=== PATIENT | female | born 1965 | race Caucasian/White ===

== ENCOUNTER 2017-03-20 07:53 | Emergency (ER) | payer OTHER ==
[2017-03-20 08:07] VITALS: BP 131/67; PULSE 79; RESP 20; TEMP 97; O2SAT 99
--- NOTE | 2017-03-20 08:28 | ED PDOC ---
HPI: Female Pain Time Seen by Provider: 03/20/17 08:23 Chief Complaint (Nursing): Female Genitourinary History Per: Patient (Crampy lower abd pain assoc with vaginal bleeding, small amount x 2 days. LMP 2 years ago.) Onset/Duration Of Symptoms: Days (2) Current Symptoms Are (Timing): Still Present Severity: Mild Pain Scale Rating Of: 2 Quality Of Discomfort: Cramping Abnormal Vaginal Bleeding: Yes Past Medical History Vital Signs: Last Vital Signs Temp 97 F L 03/20/17 08:05 Pulse 79 03/20/17 08:05 Resp 20 03/20/17 08:05 BP 131/67 03/20/17 08:05 Pulse Ox 99 03/20/17 08:05 - Medical History PMH: No Chronic Diseases - Family History Family History: States: Unknown Family Hx - Home Medications Home Medications: Ambulatory Orders Medication Instructions Recorded Naproxen [Naprosyn] 500 mg PO Q12H #20 tab 03/20/17 - Allergies Allergies/Adverse Reactions: Allergies Allergy/AdvReac Type Severity Reaction Status Date / Time No Known Allergies Allergy Verified 03/20/17 08:04 Review of Systems Constitutional: Negative for: Fever Gastrointestinal: Positive for: Abdominal Pain Genitourinary Female: Positive for: Vaginal Bleeding Musculoskeletal: Negative for: Back Pain Physical Exam - Physical Exam Appears: Positive for: Non-toxic, No Acute Distress Skin: Positive for: Normal Color, Warm, DRY Gastrointestinal/Abdominal: Positive for: Bowel Sounds, Soft. Negative for: Tenderness, Mass Pelvic Exam: Positive for: External Exam Normal, Blood (Small amount blood in vault). Negative for: Mass, Tender Adnexa, Tender Uterus - Laboratory Results Result Diagrams: 03/20/17 08:38 03/20/17 08:38 - ECG O2 Sat by Pulse Oximetry: 99 Disposition - Clinical Impression Clinical Impression: Post-menopausal bleeding, Fibroid - Patient ED Disposition Is Patient to be Admitted: No - Disposition [facility] Disposition: Routine/Home Disposition Time: 10:25 Condition: FAIR Prescriptions: Naproxen [Naprosyn] 500 mg PO Q12H #20 tab Instructions: Uterine Fibroids (ED)
[2017-03-20 08:48] LABS: BASO # 0.1 K/uL (0.0-0.2); BASO % 1.1 % (0.0-2.0); EOS # 0.1 K/uL (0.0-0.7); EOS % 2.5 % (0.0-4.0); HEMATOCRIT 40.5 % (34.0-47.0); LYMPH # 1.2 K/uL (1.0-4.3); LYMPH % 20.9 % (20.0-40.0); MEAN CELL VOLUME 93.8 fl (81.0-99.0); MEAN PLATELET VOLUME 9.7 fl (7.2-11.7); MONO # 0.4 K/uL (0.0-0.8); MONO % 6.9 % (0.0-10.0); NEUT # 3.9 K/uL (1.8-7.0); NEUT % 68.6 % (50.0-75.0); NRBC % 0.1 % (0.0-0.0); RED CELL DISTRIBUTION WIDTH 13.6 % (11.5-14.5); WHITE BLOOD COUNT 5.6 K/uL (4.8-10.8)
[2017-03-20 08:56] LABS: ALB/GLOB RATIO 1.4 (1.0-2.1); ALKALINE PHOSPHATASE 89 U/L (38-126); ALT/SGPT 49 U/L (9-52); AST/SGOT 31 U/L (14-36); BILIRUBIN,TOTAL 0.7 mg/dl (0.2-1.3); BLOOD UREA NITROGEN 11 mg/dl (7-17); CALCIUM 9.1 mg/dL (8.4-10.2); CARBON DIOXIDE 25 mmol/L (22-30); CHLORIDE 105 mmol/L (98-107); GFR AFRICAN-AMERICAN > 60; GLUCOSE,RANDOM 102 mg/dL (65-105); POTASSIUM 3.6 MMOL/L (3.6-5.0); SODIUM 141 mmol/l (132-148); TOTAL PROTEIN 7.9 G/DL (6.3-8.2)
--- NOTE | 2017-03-20 16:49 | US ---
HISTORY: Postmenopausal bleeding. COMPARISON: None available. TECHNIQUE: Transvaginal pelvic ultrasound was performed. FINDINGS: UTERUS: Measures 8.6 x 6.0 x 4.2 cm. The uterus is anteverted and normal in size. There is inhomogeneous myometrial echotexture. There is a 8 mm submucosal hypoechoic lesion in the posterior wall of the uterus. ENDOMETRIUM: The central endometrial echo complex is thickened and measures 8.6 mm. There is 4 x 6 x 3 mm cystic area in the superior endometrium. CERVIX: No cervical abnormality identified. RIGHT OVARY: Measures 2.0 x 3.2 x 1.4 cm. No solid mass. Normal flow. There is a 5 x 7 x 4 mm simple cyst. LEFT OVARY: Measures 2.2 x 2.4 x 1.0 cm. No solid mass. Normal flow. FREE FLUID: No significant free fluid noted. OTHER FINDINGS: None. IMPRESSION: 1. 8 mm submucosal lesion in the posterior wall of the uterus likely represents a submucosal fibroid however endometrial lesion is also a differential consideration. 2. Thickened central endometrial echo complex with cystic change superiorly. Given history of postmenopausal bleeding, correlation with endometrial biopsy may be performed if clinically indicated to exclude malignancy. Clinical follow-up is advised.
== END 2017-03-20 11:19 | disposition home or self-care (01) ==
LOC: H.ER 07:53
DX: N95.0 Postmenopausal bleeding (principal); D25.9 Leiomyoma of uterus, unspecified

== ENCOUNTER 2017-03-28 12:02 | Emergency (ER) | payer OTHER | END 2017-03-28 15:30 | disposition home or self-care (01) | LOC: H.ER 12:02 | DX: R10.2 Pelvic and perineal pain (principal); D25.9 Leiomyoma of uterus, unspecified ==

== ENCOUNTER 2017-03-29 23:34 | Observation (INO) | payer OTHER ==
[2017-03-30] MEDS ORDERED: Sodium Chloride 0.9% 1,000 ML IV STA (00:01)
--- NOTE | 2017-03-30 00:15 | ED PDOC ---
HPI: Abdomen Chief Complaint (Provider): vomiting blood History Per: Patient History/Exam Limitations: no limitations Onset/Duration Of Symptoms: Days Outside of [place] travel?: No Current Symptoms Are (Timing): Constant Associated Symptoms: Back Pain, Urinary Symptoms. denies: Fever, Nausea, Chest Pain Exacerbating Factors: None Alleviating Factors: None Last Bowel Movement: Today Additional History Per: Patient, Family <Carroll Álvarez - Last Filed: 03/30/17 01:21> <Joanna Cummings - Last Filed: 03/30/17 05:29> Time Seen by Provider: 03/29/17 23:40 Chief Complaint (Nursing): GI Problem Additional Complaint(s): 51 yo female without PMH presents to the ED c/o one bloody vomiting, dark, small amount, associated with abdominal discomfort, chills also reports dark stools today and frequency with discomfort during urination x1wk .Denies fever, diarrhea, constipation, headache. Has history of L hip pain for which she is taking Motrin (q6h), also taking pantoprazole. She went yesterday in the ER for abdominal discomfort. Denies any other symptoms. PCP: Dr Mccray (Carroll Álvarez) Past Medical History Reviewed: Nursing Documentation, Vital Signs - Surgical History Surgical History: No Surg Hx - Family History Family History: States: Unknown Family Hx - Living Arrangements Living Arrangements: With Family - Social History Current smoker - smoking cessation education provided: No Ex-Smoker (has not smoked in the last 12 months): No <Carroll Álvarez - Last Filed: 03/30/17 01:21> <Joanna Cummings - Last Filed: 03/30/17 05:29> Vital Signs: Last Vital Signs Temp 98.3 F 03/30/17 02:35 Pulse 80 03/30/17 03:26 Resp 20 03/30/17 03:26 BP 133/73 03/30/17 02:35 Pulse Ox 100 03/30/17 02:35 - Home Medications Home Medications: Ambulatory Orders Medication Instructions Recorded Dicyclomine [Bentyl] 20 mg PO TID 03/30/17 Ibuprofen [Motrin Tab] 03/30/17 Pantoprazole Sodium [Pantoprazole 40 mg PO DAILY 03/30/17 Sodium] - Allergies Allergies/Adverse Reactions: Allergies Allergy/AdvReac Type Severity Reaction Status Date / Time No Known Allergies Allergy Verified 03/20/17 08:04 Review of Systems ROS Statement: Except As Marked, All Systems Reviewed And Found Negative Constitutional: Positive for: Chills, Weakness. Negative for: Fever Eyes: Negative for: Pain, Vision Change ENT: Negative for: Ear Pain, Mouth Pain Cardiovascular: Negative for: Chest Pain, Palpitations, Edema Respiratory: Negative for: Cough, Shortness of Breath Gastrointestinal: Positive for: Nausea, Vomiting Genitourinary Female: Positive for: Dysuria. Negative for: Hematuria Neurological: Negative for: Confusion, Altered Mental Status <Carroll Álvarez - Last Filed: 03/30/17 01:21> Physical Exam - Reviewed Nursing Documentation Reviewed: Yes Vital Signs Reviewed: Yes - Physical Exam Appears: Positive for: No Acute Distress Head Exam: Positive for: NORMAL INSPECTION Skin: Positive for: Normal Color. Negative for: Diaphoresis, Pallor, Jaundice Eye Exam: Positive for: Normal appearance, EOMI, PERRL ENT: Positive for: Normal ENT Inspection Neck: Positive for: Normal Cardiovascular/Chest: Positive for: Regular Rate, Rhythm, Chest Non Tender. Negative for: Edema, Murmur Respiratory: Positive for: Normal Breath Sounds Gastrointestinal/Abdominal: Positive for: Bowel Sounds, Soft, Other (mild discomfort on RUQ on percussion). Negative for: Mass Rectal: Positive for: Rectal Tone Is: (normal), Stool Is Heme: (negative), Hemorrhoids (non bleeding) Neurologic/Psych: Positive for: Alert, three knife trimmer II-XII, Oriented <Carroll Álvarez - Last Filed: 03/30/17 01:21> - Laboratory Results Result Diagrams: 03/30/17 00:17 03/30/17 00:17 - ECG O2 Sat by Pulse Oximetry: 99 Pulse Ox Interpretation: Normal <Carroll Álvarez - Last Filed: 03/30/17 01:21> - Laboratory Results Result Diagrams: 03/30/17 00:17 03/30/17 00:17 <Joanna Cummings - Last Filed: 03/30/17 05:29> - Progress ED Course And Treament: Time:23:39 Impression: 51 yo Female with bloody vomiting, once today,dark, also dark stools today, abdominal discomfort, frequency and dysuria. NSAID therapy q6h for last 48 hrs. Plan: CBC CMP GUIAC IV Saline EKG CXR Protonix Urinalysis Urine culture Reassess. Time: 0100 Patient re-evaluated. Unchanged symptoms. Labs reviewed, unremarkable. 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 Logan, who accepts admission. (Carroll Álvarez) Disposition - Patient ED Disposition Is Patient to be Admitted: Yes Counseled Patient/Family Regarding: Studies Performed, Diagnosis - Disposition Disposition Time: : <Carroll Álvarez - Last Filed: 03/30/17 01:21> <Joanna Cummings - Last Filed: 03/30/17 05:29> - Clinical Impression Clinical Impression: GI bleed - Disposition Condition: FAIR
[2017-03-30 00:21] LABS: BASO % 0.4 % (0.0-2.0); HEMOGLOBIN 13.3 g/dL (12.0-16.0); LYMPH # 1.3 K/uL (1.0-4.3); MEAN CELL VOLUME 93.4 fl (81.0-99.0); MEAN CORPUSCULAR HEMOGLOBIN 31.4 pg (27.0-31.0); MEAN CORPUSCULAR HGB CONC 33.6 g/dL (33.0-37.0); MEAN PLATELET VOLUME 9.7 fl (7.2-11.7); MONO # 0.3 K/uL (0.0-0.8); MONO % 6.6 % (0.0-10.0); RBC 4.24 Mil/uL (3.80-5.20); RED CELL DISTRIBUTION WIDTH 13.4 % (11.5-14.5); WHITE BLOOD COUNT 4.7 K/uL (4.8-10.8)
[2017-03-30 00:28] LABS: ALB/GLOB RATIO 1.4 (1.0-2.1); ALBUMIN 4.4 g/dL (3.5-5.0); ALT/SGPT 55 U/L (9-52); AST/SGOT 29 U/L (14-36); BLOOD UREA NITROGEN 10 mg/dl (7-17); CALCIUM 9.1 mg/dL (8.4-10.2); GFR AFRICAN-AMERICAN > 60; GFR NON-AFRICAN AMERICAN > 60; LIPASE 73 U/L (23-300)
[2017-03-30 00:37] LABS: SQUAMOUS EPITHIAL < 1 /hpf (0-5); URINE BILIRUBIN NEGATIVE (NEGATIVE); URINE BLOOD NEGATIVE (NEGATIVE); URINE CLARITY CLEAR (Clear); URINE COLOR STRAW (YELLOW); URINE GLUCOSE (UA) NEG (Normal); URINE LEUKOCYTE ESTERASE NEG Leu/uL (Negative); URINE NITRATE NEGATIVE (NEGATIVE); URINE PROTEIN NEGATIVE (NEGATIVE); URINE UROBILINOGEN 0.2-1.0 mg/dL (0.2-1.0)
[2017-03-30] MEDS ORDERED: Lactated Ringer's 500 ML IV ONE ×2 (10:25→10:31)
[2017-03-30] MEDS ORDERED: Midazolam 2 MG/2 ML VIAL ONE (10:35)
[2017-03-30] MEDS ORDERED: Propofol 10 mg/ml Inj (20 ML) ONE (10:35)
--- NOTE | 2017-03-30 11:03 | CP.PCM.CON ---
History of Present Illness - History of Present Illness History of Present Illness: 51 yo female admitted with vomiting , abdominal pain , and dysuria for one week. When vomiting, small amount of blood was seen.Was on ibuprofen for hip pain and also using pantoprazole. Review of Systems - Constitutional Constitutional: absent: Chills - EENT Eyes: absent: Blind Spots Nose/Mouth/Throat: absent: Epistaxis - Cardiovascular Cardiovascular: absent: Chest Pain - Respiratory Respiratory: absent: Cough - Gastrointestinal Gastrointestinal: As Per HPI - Genitourinary Genitourinary: As Per HPI Past Patient History - Past Medical History & Family History Past Medical History?: Yes - Past Social History Smoking Status: Never Smoked - CARDIAC Hx Cardiac Disorders: No - PULMONARY Hx Respiratory Disorders: No - NEUROLOGICAL Hx Neurological Disorder: No - HEENT Hx HEENT Problems: No - RENAL Hx Chronic Kidney Disease: No - ENDOCRINE/METABOLIC Hx Endocrine Disorders: No - HEMATOLOGICAL/ONCOLOGICAL Hx Blood Disorders: No - INTEGUMENTARY Hx Dermatological Problems: No - MUSCULOSKELETAL/RHEUMATOLOGICAL Hx Musculoskeletal Disorders: No Hx Falls: No - GASTROINTESTINAL Hx Gastrointestinal Disorders: No - GENITOURINARY/GYNECOLOGICAL Hx Genitourinary Disorders: Yes Hx Postmenopausal Bleeding: Yes (Fibroids) Other/Comment: Menopausal x 2 years - PSYCHIATRIC Hx Emotional Abuse: No Hx Physical Abuse: No - SURGICAL HISTORY Hx Surgeries: No - ANESTHESIA Hx Anesthesia: Yes Hx Anesthesia Reactions: No Hx Malignant Hyperthermia: No Has any member of the family had a problem w/ anesthesia?: No Meds Allergies/Adverse Reactions: Allergies Allergy/AdvReac Type Severity Reaction Status Date / Time No Known Allergies Allergy Verified 03/20/17 08:04 - Medications Medications: Current Medications Ondansetron HCl (Zofran Inj) 4 mg IVP Q4 PRN PRN Reason: Nausea/Vomiting Physical Exam - Head Exam Head Exam: ATRAUMATIC - Eye Exam Eye Exam: Normal appearance Pupil Exam: NORMAL ACCOMODATION - ENT Exam ENT Exam: Mucous Membranes Moist - Neck Exam Neck exam: Positive for: Normal Inspection - Respiratory Exam Respiratory Exam: Clear to Auscultation Bilateral - Cardiovascular Exam Cardiovascular Exam: REGULAR RHYTHM, +S1, +S2 - GI/Abdominal Exam GI & Abdominal Exam: Normal Bowel Sounds, Soft, Tenderness Additional comments: moderate epigastric tenderness Results - Vital Signs Recent Vital Signs: Last Vital Signs Temp 98.4 F 03/30/17 10:42 Pulse 76 03/30/17 10:42 Resp 19 03/30/17 10:42 BP 93/59 L 03/30/17 10:42 Pulse Ox 100 03/30/17 10:42 - Labs Result Diagrams: 03/30/17 00:17 03/30/17 00:17 Labs: Laboratory Results - last 24 hr 03/30/17 08:30 Vitamin B12 392 TSH 3rd Generation 1.08 Assessment & Plan (1) GI bleed Assessment and Plan: Epiastric posada and hematemesis. R/o ulcer or gastritis. Will do upper enoscopy Status: Acute
--- NOTE | 2017-03-30 11:21 | RAD ---
HISTORY: vomiting blood COMPARISON: No prior. FINDINGS: LUNGS: No active pulmonary disease. PLEURA: No significant pleural effusion identified, no pneumothorax apparent. CARDIOVASCULAR: Normal. OSSEOUS STRUCTURES: No significant abnormalities. VISUALIZED UPPER ABDOMEN: Normal. OTHER FINDINGS: None. IMPRESSION: No active disease. No preliminary report provided by emergency department personnel.
[2017-03-30 16:03] VITALS: BP 109/68; PULSE 79; RESP 18; TEMP 98.4; O2SAT 100
--- NOTE | 2017-04-21 10:54 | CP.PCM.CON ---
History of Present Illness - History of Present Illness History of Present Illness: Chief complaint: vomiting blood HPI: This is a 51 year old female without significant past medical history presenting at this hospital with bloody vomiting. Patient was brought to the emergency room and was admitted for further management. Review of Systems - Review of Systems All systems: reviewed and no additional remarkable complaints except - Cardiovascular Cardiovascular: absent: Chest Pain - Respiratory Respiratory: absent: Dyspnea - Gastrointestinal Gastrointestinal: Hematemesis. absent: Constipation, Diarrhea, Nausea, Vomiting - Musculoskeletal Musculoskeletal: absent: Arthralgias, Back Pain, Neck Pain, Radiating Pain into Limb - Neurological Neurological: absent: Dizziness, Headaches, Syncope Additional comments: Negative for LOC Past Patient History - Past Medical History & Family History Past Medical History?: No - Past Social History Smoking Status: Never Smoked Drugs: Denies (substance abuse) - CARDIAC Hx Cardiac Disorders: No - PULMONARY Hx Respiratory Disorders: No - NEUROLOGICAL Hx Neurological Disorder: No - HEENT Hx HEENT Problems: No - RENAL Hx Chronic Kidney Disease: No - ENDOCRINE/METABOLIC Hx Endocrine Disorders: No - HEMATOLOGICAL/ONCOLOGICAL Hx Blood Disorders: No - INTEGUMENTARY Hx Dermatological Problems: No - MUSCULOSKELETAL/RHEUMATOLOGICAL Hx Musculoskeletal Disorders: No Hx Falls: No - GASTROINTESTINAL Hx Gastrointestinal Disorders: No - GENITOURINARY/GYNECOLOGICAL Hx Genitourinary Disorders: Yes Hx Postmenopausal Bleeding: Yes (Fibroids) Other/Comment: Menopausal x 2 years - PSYCHIATRIC Hx Emotional Abuse: No Hx Physical Abuse: No - SURGICAL HISTORY Hx Surgeries: No - ANESTHESIA Hx Anesthesia: Yes Hx Anesthesia Reactions: No Hx Malignant Hyperthermia: No Has any member of the family had a problem w/ anesthesia?: No Meds Home Medications: Home Medication List Medication Instructions Recorded Confirmed Type Pantoprazole [Protonix] 40 mg PO DAILY #30 ect 03/30/17 Rx Allergies/Adverse Reactions: Allergies Allergy/AdvReac Type Severity Reaction Status Date / Time No Known Allergies Allergy Verified 03/20/17 08:04 - Medications Medications: None Physical Exam - Constitutional Appears: No Acute Distress - Head Exam Head Exam: ATRAUMATIC - Eye Exam Eye Exam: absent: Nystagmus Pupil Exam: PERRL - Neck Exam Neck exam: Negative for: Lymphadenopathy, Thyromegaly Additional comments: Normal carotids - Respiratory Exam Respiratory Exam: Clear to Auscultation Bilateral (Good bilateral air exchange) . absent: Rales, Rhonchi - Cardiovascular Exam Cardiovascular Exam: REGULAR RHYTHM, +S1, +S2. absent: Gallop, Rubs, Systolic Murmur - GI/Abdominal Exam GI & Abdominal Exam: Normal Bowel Sounds, Soft. absent: Distended, Guarding, Organomegaly, Rebound, Rigid, Tenderness - Extremities Exam Extremities exam: Negative for: pedal edema (no acute swelling), tenderness Additional comments: no acute ischemic - Neurological Exam Additional comments: Essentially unchanged Results - Vital Signs Recent Vital Signs: Last Vital Signs Temp 98.4 F 03/30/17 11:12 Pulse 79 03/30/17 11:12 Resp 18 03/30/17 11:12 BP 109/68 03/30/17 11:12 Pulse Ox 100 03/30/17 11:12 Vital signs: temperature afebrile, pulse 80, respiration: 18, blood pressure: 120/80, no orthostatic changes - Labs Result Diagrams: 03/30/17 00:17 03/30/17 00:17 Labs: Diagnostic data: available diagnostic data is reviewed. WBC: 4.7; hemoglobin: 13 ; hematocrit: 39.6; platelet: 139 ; sodium: 142; potassium: 3.7; bicarb: 26; BUN : 10; creatinine: 0.7; blood sugar: 120. Assessment & Plan - Assessment and Plan (Free Text) Assessment: Admitting impression: Vomiting blood. Plan: Plan as ordered. Case and plan discussed with patient.
== END 2017-03-30 16:33 | disposition home or self-care (01) ==
LOC: H.ER 23:34 → H.ERHOLD 03-30 01:03 → INTOOBSV 03-30 01:03 → H.MEDSURG1 03-30 02:29
PROVIDERS: ADMIT Internal Medicine; ATTEND Internal Medicine
DX: K92.0 Hematemesis (principal); K29.50 Unspecified chronic gastritis without bleeding; R30.0 Dysuria